=== PATIENT | female | born 1955 | race Caucasian/White ===

== ENCOUNTER 2017-04-18 20:26 | Emergency (ER) | payer BC ==
[2017-04-18] MEDS ORDERED: Hyoscyamine 0.125 MG Tab.SL SL ONE (20:48)
[2017-04-18] MEDS ORDERED: Aspirin 81 MG Tab.Chew PO ONE (20:48)
--- NOTE | 2017-04-18 20:52 | EDM.PDOC ---
ED HPI GENERAL MEDICAL PROBLEM - General Chief Complaint: Chest Pain Stated Complaint: chest pain Time Seen by Provider: 04/18/17 20:47 Source of Information: Reports: Patient, Family (spouse) History Limitations: Reports: No Limitations - History of Present Illness INITIAL COMMENTS - FREE TEXT/NARRATIVE: 61-year-old female presents to the ED with diffuse central chest heaviness or pressure discomfort that radiates through to her back between the scapulae. She first appreciated this about 1730 hours today. This persisted. It does not seem to be worsened by anything. She doesn't feel like she has any heartburn component although the pain seems to radiate from the stomach up into her throat. She feels some discomfort in the right upper chest remedied. Nothing the left shoulder neck or arm. No shortness of breath. No cough sputum production. No fever or chills. A never smoker. No recent medications and not on hormone replacement therapy. No recent travel history. Quite active on a daily basis. No family history of heart disease. Rare alcohol user. She did feel a slight discomfort summoned to the discomfort she has tonight about 2 nights ago. She is really not aware of any reflux disease. Onset: Today Onset Date: 04/18/17 Onset Time: 17:30 Duration: Hour(s):, Constant Location: Reports: Chest (Radiates through to her in scapular area. Sore of some discomfort radiating up into the suprasternal notch area.) Quality: Reports: Ache, Pressure, Other Severity: Moderate (Heaviness) Improves with: Reports: None Worsens with: Reports: None Context: Reports: Other (Spent most of the day mowing lawn on a garden tractor.) . Denies: Activity, Exercise, Lifting, Sick Contact, Trauma Associated Symptoms: Reports: Chest Pain. 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: Reports: Other (see below) (None.) Chest Pain Score (Numeric/FACES): 8 - Related Data Allergies Allergy/AdvReac Type Severity Reaction Status Date / Time ivp dye Allergy Hives Uncoded 04/18/17 20:37 Home Meds: Home Meds Calcium Carbonate/Vitamin D3 [Calcium 600 + Vit D 200] 1 tab PO DAILY 04/18/17 [ History] Cholecalciferol (Vitamin D3) [Vitamin D] 0 unit PO DAILY 04/18/17 [History] Sertraline [Zoloft] 100 mg PO DAILY 04/18/17 [History] Past Medical History Psychiatric History: Reports: Anxiety - Past Surgical History Musculoskeletal Surgical History: Reports: Other (See Below) (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 Denies: Shortness of Breath, Wheezing, Pleuritic Chest Pain, Cough, Sputum Cardiovascular: Reports: Chest Pain. Denies: Blood Pressure Problem (History of present illness), Claudication, Dyspnea on Exertion, Edema, Lightheadedness, Palpitations, PND, Syncope Endocrine: Reports: No Symptoms GI/Abdominal: Denies: Abdominal Pain, Anorexia, Black Stool, Bloody Stool, Constipation, Diarrhea, Decreased Appetite, Difficulty Swallowing, Distension, Flatus : Reports: No Symptoms Musculoskeletal: Reports: Other (Has some discomfort in her right upper chest remedy which he believes is from raking too much over the last few days) Skin: Reports: No Symptoms Neurological: Reports: No Symptoms Psychiatric: Reports: Anxiety (Take sertraline 100 mg daily for anxiety relief.) Hematologic/Lymphatic: Reports: No Symptoms Immunologic: Reports: No Symptoms ED EXAM, GENERAL - Physical Exam Exam: See Below Exam Limited By: No Limitations General Appearance: Alert, WD/WN, Anxious (Mildly anxious.), Mild Distress Eye Exam: Bilateral Eye: Normal Inspection Throat/Mouth: Normal Inspection, Normal Lips, Normal Teeth, Normal Oropharynx Head: Atraumatic, Normocephalic Neck: Normal Inspection, Supple, Non-Tender, Full Range of Motion. No: Lymphadenopathy (L), Lymphadenopathy (R) Respiratory/Chest: No Respiratory Distress, Lungs Clear, Normal Breath Sounds, No Accessory Muscle Use, Chest Non-Tender Cardiovascular: Normal Peripheral Pulses, Regular Rate, Rhythm, No Edema, No Gallop, No Murmur Peripheral Pulses: 3+: Posterior Tibial (L), Posterior Tibial (R), Dorsalis Pedis (L), Dorsalis Pedis (R) GI/Abdominal: Normal Bowel Sounds, Soft, Non-Tender, No Organomegaly, No Distention, No Abnormal Bruit, No Mass, Other (No surgical scars) Back Exam: Normal Inspection, Full Range of Motion. No: CVA Tenderness (L), CVA Tenderness (R) Extremities: Normal Inspection, Normal Range of Motion, Non-Tender, No Pedal Edema, Normal Capillary Refill Neurological: Alert, Oriented, CN II-XII Intact, Normal Cognition, No Motor/ Sensory Deficits Psychiatric: Normal Affect, Normal Mood Skin Exam: Warm, Dry, Intact, Normal Color, No Rash EKG INTERPRETATION EKG Date: 04/18/17 Time: 20:35 Rhythm: NSR Rate (beats/min): 70 [place]: LAD-left axis deviation (-42.) P-wave: present QRS: normal ST-T: depressed (Very minimal depression of the ST segment is appreciated in leads 23 and aVF this was less than 0.5 mm. Cannot rule out inferior wall ischemia. There is also mild ST segment depression in lead V5 and perhaps V4.) QT: normal Course - Vital Signs Last Recorded V/S: Last Vital Signs Temp 36.6 C 04/18/17 20:35 Pulse 61 04/18/17 22:11 Resp 18 04/18/17 22:11 BP 113/78 04/18/17 22:11 Pulse Ox 98 04/18/17 22:11 - Orders/Labs/Meds Orders: Active Orders 24 hr Category Date Time Status EKG 12 Lead [EKG Documentation Completion] [RC] STAT Care 04/18/17 20:35 Active EKG Documentation Completion [RC] STAT Care 04/18/17 20:49 Inactive EKG Documentation Completion [RC] STAT Care 04/18/17 22:09 Active Chest 1V Frontal [CR] Stat Exams 04/18/17 20:49 Taken CBC W/O DIFF,HEMOGRAM [HEME] MOTH@0700 Lab 04/22/17 07:00 Ordered CBC W/O DIFF,HEMOGRAM [HEME] MOTH@0700 Lab 04/25/17 07:00 Ordered CBC W/O DIFF,HEMOGRAM [HEME] MOTH@0700 Lab 04/29/17 07:00 Ordered CBC W/O DIFF,HEMOGRAM [HEME] MOTH@0700 Lab 05/02/17 07:00 Ordered CBC W/O DIFF,HEMOGRAM [HEME] MOTH@0700 Lab 05/06/17 07:00 Ordered CBC W/O DIFF,HEMOGRAM [HEME] MOTH@0700 Lab 05/09/17 07:00 Ordered Nitroglycerin/D5W [Nitroglycerin 25 MG/D5W 250 ML] Med 04/18/17 21:00 Active 25 mg in 250 ml IV ASDIRECTED Sodium Chloride 0.9% [Normal Saline] 1,000 ml Med 04/18/17 21:00 Active IV ASDIRECTED Medication Orders Nitroglycerin/Dextrose (Nitroglycerin 25 Mg/D5w 250 Ml) 25 mg in 250 mls @ 6 mls/hr IV ASDIRECTED VINAYAK PRN Reason: 10 MCG/MIN Last Admin: 04/18/17 22:09 Dose: 10 mcg/min, 6 mls/hr Admin: 04/18/17 21:36 Dose: 10 mcg/min, 6 mls/hr Sodium Chloride (Normal Saline) 1,000 mls @ 125 mls/hr IV ASDIRECTED VINAYAK Last Admin: 04/18/17 20:57 Dose: 125 mls/hr Labs: Laboratory Tests 04/18/17 04/18/17 04/18/17 Range/Units 20:55 20:55 20:55 WBC 4.91 (3.98-10.04) K/mm3 RBC 4.43 (3.98-5.22) M/mm3 Hgb 13.4 (11.2-15.7) gm/L Hct 41.3 (34.1-44.9) % MCV 93.2 (79.4-94.8) fl MCH 30.2 (25.6-32.2) pg MCHC 32.4 (32.2-35.5) g/dl RDW Std Deviation 44.9 (36.4-46.3) fL Plt Count 175 L (182-369) K/mm3 MPV 8.7 L (9.4-12.3) fl Neutrophils % (Manual) 48 (40-60) % Band Neutrophils % 0 (0-10) % Lymphocytes % (Manual) 43 H (20-40) % Atypical Lymphs % 0 % Monocytes % (Manual) 6 (2-10) % Eosinophils % (Manual) 2 (0.7-5.8) % Basophils % (Manual) 1 (0.1-1.2) Platelet Estimate Adequate Plt Morphology Comment Normal RBC Morph Comment Normal PT 10.7 (8.0-13.0) SECONDS INR 0.98 D-Dimer, Quantitative 0.36 (0.19-0.59) mg/L Sodium 143 (136-145) mEq/L Potassium 3.9 (3.5-5.1) mEq/L Chloride 106 (98-107) mEq/L Carbon Dioxide 28 (21-32) mEq/L Anion Gap 12.9 (5-15) BUN 21 H (7-18) mg/dL Creatinine 0.9 (0.55-1.02) mg/dL Est Cr Clr Drug Dosing 52.57 mL/min Estimated GFR (MDRD) > 60 (>60) mL/min BUN/Creatinine Ratio 23.3 H (14-18) Glucose 100 (74-106) mg/dL Calcium 9.9 (8.5-10.1) mg/dL Total Bilirubin 0.2 (0.2-1.0) mg/dL AST 17 (15-37) U/L ALT 24 (14-59) U/L Alkaline Phosphatase 58 (46-116) U/L CK-MB (CK-2) 1.5 (0-3.6) ng/ml Troponin I 0.077 H* (0.00-0.056) ng/mL C-Reactive Protein < 0.2 (<1.0) mg/dL Total Protein 7.4 (6.4-8.2) g/dl Albumin 4.0 (3.4-5.0) g/dl Globulin 3.4 gm/dL Albumin/Globulin Ratio 1.2 (1-2) 04/18/17 Range/Units 22:45 WBC (3.98-10.04) K/mm3 RBC (3.98-5.22) M/mm3 Hgb (11.2-15.7) gm/L Hct (34.1-44.9) % MCV (79.4-94.8) fl MCH (25.6-32.2) pg MCHC (32.2-35.5) g/dl RDW Std Deviation (36.4-46.3) fL Plt Count (182-369) K/mm3 MPV (9.4-12.3) fl Neutrophils % (Manual) (40-60) % Band Neutrophils % (0-10) % Lymphocytes % (Manual) (20-40) % Atypical Lymphs % % Monocytes % (Manual) (2-10) % Eosinophils % (Manual) (0.7-5.8) % Basophils % (Manual) (0.1-1.2) Platelet Estimate Plt Morphology Comment RBC Morph Comment PT (8.0-13.0) SECONDS INR D-Dimer, Quantitative (0.19-0.59) mg/L Sodium (136-145) mEq/L Potassium (3.5-5.1) mEq/L Chloride (98-107) mEq/L Carbon Dioxide (21-32) mEq/L Anion Gap (5-15) BUN (7-18) mg/dL Creatinine (0.55-1.02) mg/dL Est Cr Clr Drug Dosing mL/min Estimated GFR (MDRD) (>60) mL/min BUN/Creatinine Ratio (14-18) Glucose (74-106) mg/dL Calcium (8.5-10.1) mg/dL Total Bilirubin (0.2-1.0) mg/dL AST (15-37) U/L ALT (14-59) U/L Alkaline Phosphatase (46-116) U/L CK-MB (CK-2) 7.1 H (0-3.6) ng/ml Troponin I 1.700 H* (0.00-0.056) ng/mL C-Reactive Protein (<1.0) mg/dL Total Protein (6.4-8.2) g/dl Albumin (3.4-5.0) g/dl Globulin gm/dL Albumin/Globulin Ratio (1-2) Meds: Medications Generic Name Dose Route Start Last Admin Trade Name Freq PRN Reason Stop Dose Admin Nitroglycerin/Dextrose 25 mg in 250 mls @ 6 mls/hr 04/18/17 21:00 04/18/17 22 :09 Nitroglycerin 25 Mg/D5w 250 Ml IV 10 mcg/min ASDIRECTED VINAYAK 6 mls/hr 10 MCG/MIN Administration Sodium Chloride 1,000 mls @ 125 mls/hr 04/18/17 21:00 04/18/17 20:57 Normal Saline IV 125 mls/hr ASDIRECTED VINAYAK Administration Discontinued Medications Generic Name Dose Route Start Last Admin Trade Name Desmond PRN Reason Stop Dose Admin Aspirin 324 mg 04/18/17 20:48 04/18/17 20:57 Aspirin PO 04/18/17 20:49 324 mg ONETIME ONE Administration Enoxaparin Sodium 60 mg 04/18/17 22:14 04/18/17 22:31 Lovenox SUBCUT 04/18/17 22:15 60 mg ONETIME ONE Administration Hyoscyamine 0.125 mg 04/18/17 20:48 04/18/17 20:57 Hyomax-Sl SL 04/18/17 20:49 0.125 mg ONETIME ONE Administration - Radiology Interpretation Free Text/Narrative:: 61-year-old female brought to the ED by family member members due to her complaints of persistent central chest heaviness rating 2 to her intrascapular area bilaterally. Started about 1730 hours tonight and is never gone away. No heartburn or indigestion. He is aware of discomfort radiating up into the sternal notch. Has some discomfort in her right arm which he believes is from excessive use in the last few days. No history of coronary disease. She is a never smoker. No not on hormone therapy. No family history of heart disease. ECG reveals slight ST segment depression in length less than 0.5 mm in leads 23 and aVF. He may or may not represent ischemic changes. There is ST segment depression in V5 and V6 but only in one beat. These are not significant. Plan to be treated as an LA until proven otherwise. I drip to be started at 10 mcg per minute. Given ASA 324 mg chewed. We'll give her Levsin 0.125 mg sublingual to see relaxes and esophageal spasm. She may have occult GERD. Chest x-ray routine labs to include cardiac markers etc. IV will be normal saline at 125 mils per hour. - Re-Assessments/Exams Free Text/Narrative Re-Assessment/Exam: 04/18/17 21:38 problems encountered with the computer orders. [employer] went down for a period of time and the nitroglycerin drip that I had ordered liver trans-for tomorrow. It was there was never started. When questioned at 0910 hours the patient states that the Levsin sublingually seemed to help significantly relieve her discomfort in her central chest. Therefore nitro drip will be withheld at this time. Hematology his back at this time showing a white count of 4.91 with hemoglobin of 13.4 hematocrit of 41.3. Platelets are normal 175,000. Coags are normal. D-dimer 0.36. Awaiting the chemistry and the differential. Chest x-ray done portably reveals increased vascular congestion to the right lower lobes bilaterally a normal cardiac silhouette. The lungs are mildly hyperinflated. 04/18/17 22:03 Chemistry is now back showing a differential of 40% neutrophils and no bands. Initial sodium of 143 potassium 3.9 anion gap is 12.9. Glucose 100 troponin is elevated at 0.077. CK-MB fraction normal at 1.5. Therefore she needs to be kept in the ED for cardiac rule out. Nitro drip will be started at this time and I will give her Lovenox subcutaneous 1 mg per kilogram. ECG will be repeated. I will repeat her troponin and CK-MB fraction at 10:30 which is 2 hours from the time it was done first. Interestingly the patient reports that her pain remains pretty well gone. 04/18/17 22:24: Second ECG is revealing sinus rhythm at 59 per minute. The very subtle ST segment depression previously noted in leads 23 and aVF and V5 V6 his return to baseline. She still has a left axis deviation of -42 but there are no signs of ischemia at this time. Questionable laboratory mistake. Will await the repeat troponin CK-MB fractions. 04/18/17 23:30 second set of cardiac markers came back elevated with a troponin of 1.70 and a CK-MB is now 7.5. She remains completely pain-free. She'll therefore be sent to [facility] at her request for cardiology consultation and likely angiogram in the morning as long as she remains chest pain-free. We'll discuss with on-call personnel at [facility] and she will be transported by ground ambulance. 04/18/17 23:38: Spoke with at risk paraprofessional hospitalist Dr. Bernal and she has accepted care of this patient. Tentatively she will be admitted to the telemetry unit. If she develops chest pain en route they her to stop in the emergency room. Departure - Departure Time of Disposition: 23:41 Disposition: DC/Tfer to Acute Hospital 02 Reason for Transfer *Q: Other Condition: fair Clinical Impression: Non-STEMI (non-ST elevated myocardial infarction) Forms: ED Department Discharge Additional Instructions: Transferred to [facility] in [facility] per ground ambulance for direct addition to the hospital under the care of Dr. Bernal. This is for cardiology consultation in regards to elevated cardiac enzymes with earlier chest pain. - My Orders Last 24 Hours: My Active Orders 04/18/17 20:35 EKG 12 Lead [EKG Documentation Completion] [RC] STAT 04/18/17 20:49 EKG Documentation Completion [RC] STAT Chest 1V Frontal [CR] Stat 04/18/17 21:00 Nitroglycerin/D5W [Nitroglycerin 25 MG/D5W 250 ML] 25 mg in 250 ml IV ASDIRECTED Sodium Chloride 0.9% [Normal Saline] 1,000 ml IV ASDIRECTED 04/18/17 22:09 EKG Documentation Completion [RC] STAT 04/22/17 07:00 CBC W/O DIFF,HEMOGRAM [HEME] MOTH@0700 04/25/17 07:00 CBC W/O DIFF,HEMOGRAM [HEME] MOTH@0700 04/29/17 07:00 CBC W/O DIFF,HEMOGRAM [HEME] MOTH@0700 05/02/17 07:00 CBC W/O DIFF,HEMOGRAM [HEME] MOTH@0700 05/06/17 07:00 CBC W/O DIFF,HEMOGRAM [HEME] MOTH@0700 05/09/17 07:00 CBC W/O DIFF,HEMOGRAM [HEME] MOTH@0700 - Assessment/Plan Last 24 Hours: My Active Orders 04/18/17 20:35 EKG 12 Lead [EKG Documentation Completion] [RC] STAT 04/18/17 20:49 EKG Documentation Completion [RC] STAT Chest 1V Frontal [CR] Stat 04/18/17 21:00 Nitroglycerin/D5W [Nitroglycerin 25 MG/D5W 250 ML] 25 mg in 250 ml IV ASDIRECTED Sodium Chloride 0.9% [Normal Saline] 1,000 ml IV ASDIRECTED 04/18/17 22:09 EKG Documentation Completion [RC] STAT 04/22/17 07:00 CBC W/O DIFF,HEMOGRAM [HEME] MOTH@69904/25/17 07:00 CBC W/O DIFF,HEMOGRAM [HEME] MOTH@69904/29/17 07:00 CBC W/O DIFF,HEMOGRAM [HEME] MOTH@69905/02/17 07:00 CBC W/O DIFF,HEMOGRAM [HEME] MOTH@69905/06/17 07:00 CBC W/O DIFF,HEMOGRAM [HEME] MOTH@69905/09/17 07:00 CBC W/O DIFF,HEMOGRAM [HEME] MOTH@699
[2017-04-18] MEDS ORDERED: Sodium Chloride 0.9% 1,000 ML IV SCH (21:00)
[2017-04-18] MEDS: Nitroglycerin/D5W 25 MG/250 ML BOTTLE IV SCH ×2 (21:36→22:09)
[2017-04-18 22:12] VITALS: BP 113/78
[2017-04-18] MEDS ORDERED: Enoxaparin 60 MG/0.6 ML Syringe SUBCUT ONE (22:14)
--- NOTE | 2017-04-19 10:08 | CR ---
Chest: Portable view of the chest was obtained. Comparison: No previous study. Heart size and mediastinum are normal. Lungs are clear. Bony structures are grossly intact. Impression: 1. Nothing acute is identified on portable chest x-ray. Diagnostic code #1
== END 2017-04-18 23:57 ==
LOC: JD.ED 20:26
DX: I21.4 Non-ST elevation (NSTEMI) myocardial infarction (principal); F41.9 Anxiety disorder, unspecified; Z89.022 Acquired absence of left finger(s); Z79.899 Other long term (current) drug therapy; Z91.041 Radiographic dye allergy status
CPT/HCPCS: 36415; 71010; 80053; 82553; 84484; 85025; 85379; 85610; 86140; 93005; 96361; 96365; 96366; 96372; 99285; A9270; J1650; J7040

== ENCOUNTER 2020-07-11 12:40 | Emergency (ER) | payer BC ==
[2020-07-11 12:50] VITALS: BP 143/81; PULSE 70
--- NOTE | 2020-07-11 12:58 | EDM.PDOC ---
ED HPI GENERAL MEDICAL PROBLEM - General Chief Complaint: Cardiovascular Problem Stated Complaint: CHEST PAIN AND SOB Time Seen by Provider: 07/11/20 12:56 Source of Information: Reports: Patient History Limitations: Reports: No Limitations - History of Present Illness INITIAL COMMENTS - FREE TEXT/NARRATIVE: 65-year-old female presents to the ED just feeling unwell. She states she is a little lightheaded she is a little dizzy little shortness of breath little week. Nothing that she could put her finger on per se. She has a history apparently of Prinzmetal's angina. She takes Imdur long-acting and did use 2 nitroglycerin tablets this morning with no relief of her symptoms. She was not having any chest pain at the time. There is been no recent changes to any of her m edications. She denies cough or sputum production but feels short of breath on exertion. She does not think she is ever had any fluid buildup in her lungs. Bowel function is normal. She has not had any fever or chills. Denies any dysuria urgency or frequency. Onset: Gradual, Other (Not been feeling well off and on for the last for 5 days. Seems to come in spells. She not aware of any irregular heartbeat or skips.) Onset Date: 07/07/20 Duration: Day(s):, Intermittent Location: Reports: Generalized (Neurolyse sense of feeling weak and unwell. Lightheaded and dizzy. Mildly short of breath.) Quality: Reports: Other Severity: Moderate Improves with: Reports: None Worsens with: Reports: None, Other (Is perhaps a little worse with trying to take a walk on Saturday night she turned around went back home due to feeling lightheaded and dizzy but no chest pain.) Context: Denies: Activity, Exercise, Lifting, Sick Contact, Trauma, Other Associated Symptoms: Reports: Loss of Appetite, Malaise, Shortness of Breath, Weakness. 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 (see below) (Only prescribed medications but did take 2 nitroglycerin this morning but was not having any chest pain at the monty e.) - Related Data Allergies Allergy/AdvReac Type Severity Reaction Status Date / Time Iodinated Contrast Media Allergy Hives Verified 07/11/20 12:50 [Iodinated Contrast- Oral and IV Dye] Home Meds: Home Meds Sertraline [Zoloft] 100 mg PO DAILY 04/18/17 [History] Albuterol [Ventolin HFA] 2 puff INH Q4H PRN 09/09/18 [History] Aspirin [Halfprin] 81 mg PO DAILY 09/09/18 [History] Calcium/Vits D3/C/K2/Minerals [Bone Essentials Capsule] 1 tab PO DAILY 09/09/18 [History] Cholecalciferol (Vitamin D3) [Vitamin D3] 2,000 unit PO BID 09/09/18 [History] Diclofenac Sodium [Voltaren] 1 dose TOP BID PRN 09/09/18 [History] Isosorbide Mononitrate [Imdur] 30 mg PO DAILY 09/09/18 [History] Loratadine [Claritin] 10 mg PO DAILY 09/09/18 [History] Multivitamin [Daily Kathleen] 2 tab PO DAILY 09/09/18 [History] Nitroglycerin [Nitrostat] 0.4 mg PO Q5M PRN 09/09/18 [History] Pravastatin Sodium 10 mg PO DAILY 09/09/18 [History] dilTIAZem HCL [Cardizem] 120 mg PO DAILY 09/09/18 [History] Acetaminophen/HYDROcodone [[place] 325-5 MG] 1 - 2 tab PO Q6H PRN #10 tablet 09/10/18 [Rx] Past Medical History HEENT History: Reports: Impaired Vision, Other (See Below) Other HEENT History: wears glasses Cardiovascular History: Reports: Angina, High Cholesterol, [place], Other (See Below) Other Cardiovascular History: heart disease, STEMI, SVT, coronary vasospasm Respiratory History: Reports: Asthma, Other (See Below) Other Respiratory History: abnormal PFTs Gastrointestinal History: Reports: Hemorrhoids Genitourinary History: Reports: None SENIOR STRATEGY MANAGER History: Reports: Other (See Below) Other SENIOR STRATEGY MANAGER History: fibrocystic breast changes Musculoskeletal History: Reports: Other (See Below) Other Musculoskeletal History: carpal tunnel syndrome, anne's cyst, patellofemoral syndrome Neurological History: Reports: None Psychiatric History: Reports: Anxiety Endocrine/Metabolic History: Reports: None Hematologic History: Reports: None Immunologic History: Reports: None Oncologic (Cancer) History: Reports: None Dermatologic History: Reports: None - Past Surgical History Cardiovascular Surgical History: Reports: None Respiratory Surgical History: Reports: None GI Surgical History: Reports: Colonoscopy Female Surgical History: Reports: Breast Biopsy Endocrine Surgical History: Reports: None Neurological Surgical History: Reports: None Musculoskeletal Surgical History: Reports: Other (See Below) Other Musculoskeletal Surgeries/Procedures:: bunionectomy, left great toes chelectomy, hand surgery Oncologic Surgical History: Reports: None Dermatological Surgical History: Reports: None Social & Family History - Tobacco Use Smoking Status *Q: Never Smoker Second Hand Smoke Exposure: No - Caffeine Use Caffeine Use: Reports: Coffee - Recreational Drug Use Recreational Drug Use: No - Living Situation & Occupation Living situation: Reports: 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 Denies: Fever, Chills HEENT: Reports: Glasses Respiratory: Reports: Shortness of Breath, Other (She has a history of asthma but has not had to use her inhaler anymore than usual.). Denies: Wheezing, Pleuritic Chest Pain, Cough, Sputum, Hemoptysis Cardiovascular: Reports: Blood Pressure Problem, Dyspnea on Exertion, Lightheadedness. Denies: Chest Pain, Claudication, Edema, Orthopnea (Does have mild hypertension.), Palpitations, PND, Syncope, Other Endocrine: Reports: Fatigue GI/Abdominal: Reports: Decreased Appetite. Denies: Distension, Flatus, Hematemesis, Hematochezia, Melena : Reports: Other Musculoskeletal: Reports: Joint Pain Skin: Reports: No Symptoms Neurological: Reports: Dizziness, Headache, Weakness. Denies: Numbness, Syncope, Tingling Psychiatric: Reports: No Symptoms Hematologic/Lymphatic: Reports: No Symptoms Immunologic: Reports: No Symptoms ED EXAM, GENERAL - Physical Exam Exam: See Below Exam Limited By: No Limitations General Appearance: Alert, WD/WN, Anxious, Mild Distress, Other Eye Exam: Bilateral Eye: Normal Inspection, PERRL Throat/Mouth: Normal Inspection, Normal Lips, Normal Teeth, Normal Oropharynx Head: Atraumatic, Normocephalic Neck: Normal Inspection, Supple, Non-Tender, Full Range of Motion. No: Carotid Bruit, Lymphadenopathy (L), Lymphadenopathy (R), Thyromegaly Respiratory/Chest: No Respiratory Distress, Lungs Clear, Normal Breath Sounds, No Accessory Muscle Use. No: Rales, Wheezing Cardiovascular: Normal Peripheral Pulses, Regular Rate, Rhythm, No Edema, No Gallop, No Murmur, No Rub Peripheral Pulses: 3+: Carotid (L), Carotid (R), Posterior Tibial (L), Posterior Tibial (R), Dorsalis Pedis (L), Dorsalis Pedis (R) GI/Abdominal: Normal Bowel Sounds, Soft, Non-Tender, No Organomegaly, No Abnormal Bruit, No Mass, Pelvis Stable, Other Back Exam: Normal Inspection, Full Range of Motion, Other. No: CVA Tenderness (L), CVA Tenderness (R) Extremities: Normal Inspection, Normal Range of Motion, Non-Tender, No Pedal Edema Neurological: Alert, Oriented, CN II-XII Intact, Normal Cognition, No Motor/Sensory Deficits Psychiatric: Anxious Skin Exam: Warm, Dry, Intact, Normal Color, No Rash EKG INTERPRETATION EKG Date: 07/11/20 Time: 12:44 Rhythm: NSR Rate (Beats/Min): 69 [place]: LAD-Left [place] Deviation (-50 degrees.) P-Wave: Present QRS: Other (Left anterior fascicular block pattern. There are Q waves leads II, III and aVF. Consider old inferior wall myocardial infarction.) ST-T: Other (T wave flattening in aVF nonspecific finding) QT: Normal EKG Interpretation Comments: Abnormal ECG Course - Vital Signs Last Recorded V/S: Last Vital Signs Temp 36.2 C 07/11/20 12:47 Pulse 70 07/11/20 12:47 Resp 16 07/11/20 12:47 BP 143/81 H 07/11/20 12:47 Pulse Ox 95 07/11/20 12:47 - Orders/Labs/Meds Labs: Laboratory Tests 07/11/20 07/11/20 07/11/20 Range/Units 12:47 12:47 12:47 WBC 5.26 (3.98-10.04) K/mm3 RBC 4.23 (3.98-5.22) M/mm3 Hgb 13.4 (11.2-15.7) gm/dl Hct 41.9 (34.1-44.9) % MCV 99.1 H (79.4-94.8) fl MCH 31.7 (25.6-32.2) pg MCHC 32.0 L (32.2-35.5) g/dl RDW Std Deviation 48.0 H (36.4-46.3) fL Plt Count 205 (182-369) K/mm3 MPV 9.3 L (9.4-12.3) fl Neut % (Auto) 65.5 (34.0-71.1) % Lymph % (Auto) 24.5 (19.3-51.7) % [place] % (Auto) 6.7 (4.7-12.5) % Eos % (Auto) 2.5 (0.7-5.8) Baso % (Auto) 0.6 (0.1-1.2) % Neut # (Auto) 3.45 (1.56-6.13) K/mm3 Lymph # (Auto) 1.29 (1.18-3.74) K/mm3 [place] # (Auto) 0.35 (0.24-0.36) K/mm3 Eos # (Auto) 0.13 (0.04-0.36) K/mm3 Baso # (Auto) 0.03 (0.01-0.08) K/mm3 ESR (0-20) mm/hr PT 11.0 (9.7-12.0) SECONDS INR 1.03 APTT 25 (22-31) SECONDS Sodium 141 (136-145) mEq/L Potassium 3.6 (3.5-5.1) mEq/L Chloride 104 (98-107) mEq/L Carbon Dioxide 28 (21-32) mEq/L Anion Gap 12.6 (5-15) BUN 14 (7-18) mg/dL Creatinine 0.8 (0.55-1.02) mg/dL Est Cr Clr Drug Dosing 56.19 mL/min Estimated GFR (MDRD) > 60 (>60) mL/min BUN/Creatinine Ratio 17.5 (14-18) Glucose 155 H (80-115) mg/dL Hemoglobin A1c (4.50-6.20) % Calcium 9.1 (8.5-10.1) mg/dL Magnesium 1.8 (1.8-2.4) mg/dl Total Bilirubin 0.3 (0.2-1.0) mg/dL AST 19 (15-37) U/L ALT 23 (14-59) U/L Alkaline Phosphatase 62 (46-116) U/L CK-MB (CK-2) 0.8 (0-3.6) ng/ml Troponin I < 0.017 (0.00-0.056) ng/mL C-Reactive Protein 0.4 (<1.0) mg/dL NT-Pro-B Natriuret Pep (0-125) pg/mL Total Protein 7.3 (6.4-8.2) g/dl Albumin 3.9 (3.4-5.0) g/dl Globulin 3.4 gm/dL Albumin/Globulin Ratio 1.2 (1-2) Vitamin B12 (193-986) pg/ml TSH 3rd Generation (0.358-3.74) uIU/mL 07/11/20 07/11/20 07/11/20 Range/Units 12:47 12:47 12:47 WBC (3.98-10.04) K/mm3 RBC (3.98-5.22) M/mm3 Hgb (11.2-15.7) gm/dl Hct (34.1-44.9) % MCV (79.4-94.8) fl MCH (25.6-32.2) pg MCHC (32.2-35.5) g/dl RDW Std Deviation (36.4-46.3) fL Plt Count (182-369) K/mm3 MPV (9.4-12.3) fl Neut % (Auto) (34.0-71.1) % Lymph % (Auto) (19.3-51.7) % [place] % (Auto) (4.7-12.5) % Eos % (Auto) (0.7-5.8) Baso % (Auto) (0.1-1.2) % Neut # (Auto) (1.56-6.13) K/mm3 Lymph # (Auto) (1.18-3.74) K/mm3 [place] # (Auto) (0.24-0.36) K/mm3 Eos # (Auto) (0.04-0.36) K/mm3 Baso # (Auto) (0.01-0.08) K/mm3 ESR 7 (0-20) mm/hr PT (9.7-12.0) SECONDS INR APTT (22-31) SECONDS Sodium (136-145) mEq/L Potassium (3.5-5.1) mEq/L Chloride (98-107) mEq/L Carbon Dioxide (21-32) mEq/L Anion Gap (5-15) BUN (7-18) mg/dL Creatinine (0.55-1.02) mg/dL Est Cr Clr Drug Dosing mL/min Estimated GFR (MDRD) (>60) mL/min BUN/Creatinine Ratio (14-18) Glucose (80-115) mg/dL Hemoglobin A1c (4.50-6.20) % Calcium (8.5-10.1) mg/dL Magnesium (1.8-2.4) mg/dl Total Bilirubin (0.2-1.0) mg/dL AST (15-37) U/L ALT (14-59) U/L Alkaline Phosphatase (46-116) U/L CK-MB (CK-2) (0-3.6) ng/ml Troponin I (0.00-0.056) ng/mL C-Reactive Protein (<1.0) mg/dL NT-Pro-B Natriuret Pep 172 H (0-125) pg/mL Total Protein (6.4-8.2) g/dl Albumin (3.4-5.0) g/dl Globulin gm/dL Albumin/Globulin Ratio (1-2) Vitamin B12 (193-986) pg/ml TSH 3rd Generation 1.005 (0.358-3.74) uIU/mL 07/11/20 07/11/20 Range/Units 12:47 12:47 WBC (3.98-10.04) K/mm3 RBC (3.98-5.22) M/mm3 Hgb (11.2-15.7) gm/dl Hct (34.1-44.9) % MCV (79.4-94.8) fl MCH (25.6-32.2) pg MCHC (32.2-35.5) g/dl RDW Std Deviation (36.4-46.3) fL Plt Count (182-369) K/mm3 MPV (9.4-12.3) fl Neut % (Auto) (34.0-71.1) % Lymph % (Auto) (19.3-51.7) % [place] % (Auto) (4.7-12.5) % Eos % (Auto) (0.7-5.8) Baso % (Auto) (0.1-1.2) % Neut # (Auto) (1.56-6.13) K/mm3 Lymph # (Auto) (1.18-3.74) K/mm3 [place] # (Auto) (0.24-0.36) K/mm3 Eos # (Auto) (0.04-0.36) K/mm3 Baso # (Auto) (0.01-0.08) K/mm3 ESR (0-20) mm/hr PT (9.7-12.0) SECONDS INR APTT (22-31) SECONDS Sodium (136-145) mEq/L Potassium (3.5-5.1) mEq/L Chloride (98-107) mEq/L Carbon Dioxide (21-32) mEq/L Anion Gap (5-15) BUN (7-18) mg/dL Creatinine (0.55-1.02) mg/dL Est Cr Clr Drug Dosing mL/min Estimated GFR (MDRD) (>60) mL/min BUN/Creatinine Ratio (14-18) Glucose (80-115) mg/dL Hemoglobin A1c 5.90 (4.50-6.20) % Calcium (8.5-10.1) mg/dL Magnesium (1.8-2.4) mg/dl Total Bilirubin (0.2-1.0) mg/dL AST (15-37) U/L ALT (14-59) U/L Alkaline Phosphatase (46-116) U/L CK-MB (CK-2) (0-3.6) ng/ml Troponin I (0.00-0.056) ng/mL C-Reactive Protein (<1.0) mg/dL NT-Pro-B Natriuret Pep (0-125) pg/mL Total Protein (6.4-8.2) g/dl Albumin (3.4-5.0) g/dl Globulin gm/dL Albumin/Globulin Ratio (1-2) Vitamin B12 259 (193-986) pg/ml TSH 3rd Generation (0.358-3.74) uIU/mL Meds: Medications Discontinued Medications Generic Name Dose Route Start Last Admin Trade Name [place] PRN Reason Stop Dose Admin Sodium Chloride 1,000 mls @ 150 mls/hr 07/11/20 13:30 07/11/20 13:50 Normal Saline IV 150 mls/hr ASDIRECTED [facility] Administration - Radiology Interpretation Free Text/Narrative:: 65-year-old female presents to the ED with generally just not feeling well for the last for 5 days. Feels short of breath on exertion. No cough or sputum production. Feels lightheaded and dizzy at times. Feels generalized weakness. Decreased appetite. No vomiting or diarrhea. She has a history of Prinzmetal's angina for which he takes long-acting nitroglycerin or Imdur. She took 2 tablets of nitroglycerin earlier this morning because she was not feeling well but she did not have any associated chest pain at that time. Would have aggravated feeling dizzy or lightheaded. Examination is completely normal. Plan routine labs will be collected to look for electrolyte imbalance and assess cardiac function. 1 view chest x-ray to be done. - Re-Assessments/Exams Free Text/Narrative Re-Assessment/Exam: 07/11/20 14:55 White count is 5.26. Auto differential shows 65% neutrophils. Hemoglobin is 13.4 with hematocrit of 41.9. MCV is mildly elevated at 99.1. Platelet counts 205,000. PT is 11.0. INR is 1.03. PTT is 25. Sodium 141 with a potassium of 3.6 chloride 104 with a bicarb of 28. Anion gap is 12.6. BUN is 14 with a creatinine of 0.8 and a GFR greater than 60. Glucose mildly elevated at 155. Calcium is 9.1 magnesium is 1.8. Liver function normal. CK- MB fraction 0.8 troponin I is less than 0.017. C-reactive protein is 0.4 BNP slightly elevated at 172. TSH is normal at 1.005. Total protein 7.3 with an albumin fraction of 3.9. Chest x-ray reveals some calcium up in her ribs or chondrocalcinosis. Lungs are otherwise clear. Cardiac silhouette is normal no pleural effusion no pneumothorax. 07/11/20 15:13 patient admits to having a cookie prior to coming to the ED which likely postoperative blood sugar mildly. I had ordered a glycosylated protein to make sure she was not slipping into type 2 diabetes. 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 thousand micrograms tablet per day due to elevated MCV of red cells. I have asked her to consider discontinuing her Imdur for 2 weeks to see if she does not feel better i.e. less dizzy weak and lightheaded in the mornings. Usually this medication causes tachyphylaxis within 10 to 12 days of use and often is not helping the patient. She has no firm history of Prinzmetal's angina. There is a large component of anxiety in her symptom complex. Patient recognizes that she tends to be a very anxious person. 07/11/20 16:52 hemoglobin A1c is 5.90 confirming the patient is not diabetic. Elevated blood sugar was secondary to food eaten just prior to coming to the ED. Vitamin B12 level returned at 259 which is low normal. Departure - Departure Time of Disposition: 15:14 Disposition: Home, Self-Care 01 Reason for Transfer *Q: Other Condition: Fair Clinical Impression: Non-cardiac chest pain, Episode of generalized weakness, B12 deficiency Instructions: Shortness of Breath, Adult, [id number], Vitamin B12 Deficiency Referrals: Melony Pace MD [Primary Care Provider] - Forms: ED Department Discharge Additional Instructions: Evaluation in the emergency room today in regards to generally not feeling well. Noted increased shortness of breath on simple walking the last few days lightheaded dizziness at times. General sense of weakness and fatigue. Examination did not reveal any positive findings. ECG and chest x-ray were normal lab work suggests possible B12 deficiency with an increased size of your red blood cells which we call macrocytosis. Thus purchasing some vitamin B12 tablets which are 1 mg or 1000 mcg per dose and take 1 daily. Lab tests do not reveal any sign of any significant heart disease. Take into consideration of discontinuing her Imdur tablet which you take every morning which is a long- acting nitroglycerin which our body gets used to within 10 to 14 days of use and often is not helping much of anything. You may trial off this medication for a couple weeks and see if you do not feel better in the mornings i.e. less dizziness lightheadedness etc. However if you start developing increased central chest pressure discomfort or pain you should start the Imdur once daily. Of course there is some worry or anxiety related to current symptoms. Make sure you get adequate rest and sleep. Follow up with Dr. Cote if any other problems develop. Sepsis Event Note (ED) - Evaluation Sepsis Screening Result: No Definite Risk - Focused Exam Vital Signs: Vital Signs Temp Pulse Resp BP Pulse Ox 07/11/20 12:47 36.2 C 70 16 143/81 H 95
[2020-07-11] MEDS ORDERED: Sodium Chloride 0.9% 1,000 ML IV SCH (13:30)
--- NOTE | 2020-07-11 14:04 | CR ---
Chest: Portable view of the chest was obtained. Comparison: Prior chest x-ray of 04/18/17. Heart size is normal. Tortuous thoracic aorta is seen. Lungs are clear with no acute parenchymal change. Bony structures are grossly intact. Impression: 1. Nothing acute is seen on portable chest x-ray. Diagnostic code #1 This report was dictated in MDT
[2020-07-11 16:29] LABS: HEMOGLOBIN A1C 5.9 % (4.50-6.20)
== END 2020-07-11 15:34 | disposition home or self-care (01) ==
LOC: JD.ED 12:40
DX: R07.89 Other chest pain (principal); R53.1 Weakness; E53.8 Deficiency of other specified B group vitamins; E78.00 Pure hypercholesterolemia, unspecified; I25.2 Old myocardial infarction; J45.909 Unspecified asthma, uncomplicated; F41.9 Anxiety disorder, unspecified; Z91.041 Radiographic dye allergy status; Z79.82 Long term (current) use of aspirin; Z79.899 Other long term (current) drug therapy
CPT/HCPCS: 36415; 71045; 80053; 82553; 82607; 83036; 83735; 83880; 84443; 84484; 85025; 85610; 85652; 85730; 86140; 96360; 96361; 99285; J7030; 93010; 99284